=== PATIENT | female | born 1930 | race Caucasian/White ===

== ENCOUNTER 2019-12-04 23:09 | Inpatient (IN) ==
[2019-12-05] MEDS ORDERED: Naloxone 0.4 MG/ML INJ IVP PRN (04:57)
[2019-12-05] MEDS ORDERED: Albuterol 2.5 MG/3 ML NEBULIZER IH PRN (05:00)
[2019-12-05] MEDS: Ipratropium/Albuterol Neb 3 ML IH SCH ×4 (05:28→22:38)
[2019-12-05 05:30] LABS: ABG Base Excess 12 mEq/L (-2 to 3); ABG HCO3 39 mEq/L (21-27); ABG Oxygen Saturation 98 % (95-98); ABG PCO2 56 mmHg (35-45); ABG PH 7.44 pH Units (7.32-7.45); ABG PO2 105 mmHg (85-104); ABG TCO2 40 mEq/L (20-26)
[2019-12-05 05:37] LABS: Hematocrit 35.4 % (35.3-44.9); Hemoglobin 10.6 g/dL (11.5-15.4); Mean Corpuscular HGB Conc 29.9 g/dL (31.6-35.5); Mean Corpuscular Hemoglobin 28.1 pg (28.0-33.3); Mean Corpuscular Volume 93.9 fL (83.0-100.0); Platelet Count 218 K/mcL (140-400); Red Blood Count 3.77 M/mcL (3.82-4.97); Red Cell Distribution Width 16.8 % (11.5-14.5); White Blood Count 10.7 K/mcL (4.3-11.1)
[2019-12-05 06:03] LABS: Calcium 9.4 mg/dL (8.6-10.3); Magnesium 1.9 mg/dL (1.6-2.6); Phosphorous 2.6 mg/dL (2.7-4.5); Potassium 3.6 mEq/L (3.5-5.1)
[2019-12-05] MEDS ORDERED: D5% in Water 1,000 ML IVC PRN (06:13)
[2019-12-05] MEDS ORDERED: *HR* Dextrose 50 % in Water (Syg) 50 ML SYRINGE IVP PRN (06:13)
[2019-12-05] MEDS ORDERED: Dextrose Gel 15 GM/37.5 ML TUBE PO PRN ×2 (06:13)
[2019-12-05] MEDS ORDERED: Insulin DETEMIR 100 UNIT/ML X5UNITS SQ SCH ×2 (09:00→21:00)
[2019-12-05] MEDS ORDERED: Furosemide 40 MG/4 ML VIAL IVP SCH (09:00)
[2019-12-05] MEDS: Insulin LISPRO 300 UNITS/3 ML VIAL SQ SCH ×4 (09:04→22:07)
[2019-12-05] MEDS: Apixaban 5 MG TABLET PO SCH ×2 (09:10→22:06)
[2019-12-05] MEDS: predniSONE 20 MG TABLET PO SCH (09:10)
[2019-12-05] MEDS: Furosemide 40 MG/4 ML VIAL IVP SCH ×2 (09:10→17:28)
[2019-12-05] MEDS ORDERED: *HR* LORazepam 0.5 MG TABLET PO PRN (13:14)
[2019-12-05] MEDS: Doxycycline 100 MG CAPSULE PO SCH (22:06)
[2019-12-05] MEDS: traZODone 50 MG TABLET PO SCH (22:07)
[2019-12-06] MEDS: Ipratropium/Albuterol Neb 3 ML IH SCH ×4 (04:00→22:45)
[2019-12-06 04:08] LABS: Estimated Average Glucose 117 mg/dl
[2019-12-06 04:52] LABS: Alanine Aminotransferase 17 Units/L (7-52); Albumin 3.3 g/dL (3.5-5.7); Alkaline Phosphatase 60 Units/L (34-104); Aspartate Amino Transferase 19 Units/L (13-39); BUN/Creatinine Ratio 31 (6-26); Bilirubin,Total 0.4 mg/dL (0.3-1.0); Blood Urea Nitrogen 28 mg/dL (8-23); Calcium 9.4 mg/dL (8.6-10.3); Carbon Dioxide 39 mEq/L (23-29); Chloride 98 mEq/L (98-107); Globulin 3.3 g/dL (2.4-3.5); Glucose 92 mg/dL (70-105); Magnesium 2.2 mg/dL (1.6-2.6); Osmolality,Calculated 303 (280-300); Phosphorous 2.5 mg/dL (2.7-4.5); Potassium 3.2 mEq/L (3.5-5.1); Sodium 144 mEq/L (136-145); Total Protein 6.6 g/dL (6.4-8.9); eGFR For African Americans > 60 (> 60); eGFR For Non-African Americans 59 (> 60)
[2019-12-06] MEDS: Apixaban 5 MG TABLET PO SCH ×2 (08:25→20:39)
[2019-12-06] MEDS: Doxycycline 100 MG CAPSULE PO SCH ×2 (08:25→20:40)
[2019-12-06] MEDS: predniSONE 20 MG TABLET PO SCH (08:25)
[2019-12-06] MEDS: Pyridoxine (B-6) 50 MG TABLET PO SCH (08:26)
[2019-12-06] MEDS: Cholecalciferol (D-3) 1,000 UNIT (25MCG) TABLET PO SCH (08:26)
[2019-12-06] MEDS: Ascorbic Acid 500 MG TABLET PO SCH (08:26)
[2019-12-06] MEDS: Insulin LISPRO 300 UNITS/3 ML VIAL SQ SCH ×4 (08:34→20:44)
[2019-12-06] MEDS: Furosemide 40 MG/4 ML VIAL IVP SCH ×3 (08:35→16:35)
[2019-12-06] MEDS ORDERED: Insulin DETEMIR 100 UNIT/ML X5UNITS SQ SCH (09:00)
[2019-12-06] MEDS ORDERED: ROFLUMILAST 250 MG PO SCH (09:00)
[2019-12-06] MEDS: (Roflumilast [Daliresp] 250 MCG) PO SCH (10:30)
[2019-12-06] MEDS: traZODone 50 MG TABLET PO SCH (20:39)
[2019-12-07 02:14] LABS: BUN/Creatinine Ratio 44 (6-26); Blood Urea Nitrogen 37 mg/dL (8-23); Calcium 9.4 mg/dL (8.6-10.3); Carbon Dioxide 38 mEq/L (23-29); Chloride 98 mEq/L (98-107); Glucose 80 mg/dL (70-105); Magnesium 2.1 mg/dL (1.6-2.6); Osmolality,Calculated 298 (280-300); Phosphorous 2.6 mg/dL (2.7-4.5); Potassium 3.6 mEq/L (3.5-5.1); Sodium 140 mEq/L (136-145); eGFR For African Americans > 60 (> 60); eGFR For Non-African Americans > 60 (> 60)
[2019-12-07] MEDS: Ipratropium/Albuterol Neb 3 ML IH SCH ×4 (03:55→22:30)
[2019-12-07] MEDS: Doxycycline 100 MG CAPSULE PO SCH ×2 (08:30→20:58)
[2019-12-07] MEDS: Apixaban 5 MG TABLET PO SCH ×2 (08:31→20:58)
[2019-12-07] MEDS: Pyridoxine (B-6) 50 MG TABLET PO SCH (08:31)
[2019-12-07] MEDS: Cholecalciferol (D-3) 1,000 UNIT (25MCG) TABLET PO SCH (08:31)
[2019-12-07] MEDS: predniSONE 20 MG TABLET PO SCH (08:34)
[2019-12-07] MEDS: Ascorbic Acid 500 MG TABLET PO SCH (08:34)
[2019-12-07] MEDS: Insulin LISPRO 300 UNITS/3 ML VIAL SQ SCH ×4 (08:35→21:08)
[2019-12-07] MEDS: (Roflumilast [Daliresp] 250 MCG) PO SCH (08:40)
[2019-12-07] MEDS: Furosemide 40 MG/4 ML VIAL IVP SCH ×2 (11:55→21:00)
[2019-12-07] MEDS: traZODone 50 MG TABLET PO SCH (21:02)
[2019-12-08] MEDS: Ipratropium/Albuterol Neb 3 ML IH SCH ×4 (03:32→21:54)
[2019-12-08] MEDS: Insulin LISPRO 300 UNITS/3 ML VIAL SQ SCH ×4 (07:48→20:51)
[2019-12-08] MEDS: Doxycycline 100 MG CAPSULE PO SCH ×2 (09:46→20:51)
[2019-12-08] MEDS: predniSONE 20 MG TABLET PO SCH (09:47)
[2019-12-08] MEDS: Apixaban 5 MG TABLET PO SCH ×2 (09:47→20:50)
[2019-12-08] MEDS: Pyridoxine (B-6) 50 MG TABLET PO SCH (09:48)
[2019-12-08] MEDS: Cholecalciferol (D-3) 1,000 UNIT (25MCG) TABLET PO SCH (09:48)
[2019-12-08] MEDS: Ascorbic Acid 500 MG TABLET PO SCH (09:48)
[2019-12-08] MEDS: (Roflumilast [Daliresp] 250 MCG) PO SCH (09:49)
[2019-12-08] MEDS: Furosemide 40 MG/4 ML VIAL IVP SCH (11:42)
[2019-12-08] MEDS: Furosemide 20 MG/2 ML VIAL IVP SCH ×2 (13:20→20:50)
[2019-12-08] MEDS: traZODone 50 MG TABLET PO SCH (20:50)
[2019-12-09] MEDS: Ipratropium/Albuterol Neb 3 ML IH SCH ×2 (03:59→10:37)
[2019-12-09] MEDS: Insulin LISPRO 300 UNITS/3 ML VIAL SQ SCH ×2 (07:42→12:09)
[2019-12-09] MEDS: predniSONE 20 MG TABLET PO SCH (10:02)
[2019-12-09] MEDS: Apixaban 5 MG TABLET PO SCH (10:02)
[2019-12-09] MEDS: Doxycycline 100 MG CAPSULE PO SCH (10:02)
[2019-12-09] MEDS: Ascorbic Acid 500 MG TABLET PO SCH (10:03)
[2019-12-09] MEDS: Pyridoxine (B-6) 50 MG TABLET PO SCH (10:03)
[2019-12-09] MEDS: Cholecalciferol (D-3) 1,000 UNIT (25MCG) TABLET PO SCH (10:03)
[2019-12-09] MEDS: (Roflumilast [Daliresp] 250 MCG) PO SCH (10:05)
[2019-12-09 10:21] LABS: BUN/Creatinine Ratio 43 (6-26); Blood Urea Nitrogen 38 mg/dL (8-23); Calcium 9.5 mg/dL (8.6-10.3); Carbon Dioxide 36 mEq/L (23-29); Chloride 97 mEq/L (98-107); Glucose 124 mg/dL (70-105); Osmolality,Calculated 300 (280-300); Phosphorous 3.3 mg/dL (2.7-4.5); Potassium 3.6 mEq/L (3.5-5.1); Sodium 140 mEq/L (136-145); eGFR For African Americans > 60 (> 60); eGFR For Non-African Americans 60 (> 60)
[2019-12-09 12:08] VITALS: BP 102/57
[2019-12-09] MEDS: Furosemide 20 MG/2 ML VIAL IVP SCH (12:09)
== END 2019-12-09 15:13 | disposition home health service (06) ==
LOC: 2NENU → SUATTDRO 12-05 02:28
PROVIDERS: ADMIT Family Medicine; ATTEND Internal Medicine